=== PATIENT | male | born 1980 | race Caucasian/White ===

== ENCOUNTER 2023-04-29 21:55 | Emergency (ER) | payer OTHER ==
[~2023-04-29] VITALS: Ht 177.8 cm; Wt 79.4 kg
[2023-04-29] MEDS ORDERED: TDAP [DIPH/PERTUSSIS/TET] 0.5 ML VIAL IM ONE ×2 (23:00→23:10)
[2023-04-29] MEDS ORDERED: AMOX-430 PO ×2 (23:39→23:42)
[2023-04-29] MEDS ORDERED: IBUP-1955 PO (23:42)
[2023-04-29 23:56] VITALS: BP 128/84; TEMP 98; O2SAT 99
== END 2023-04-29 23:56 | disposition home or self-care (01) ==
LOC: ER 22:05
DX: S60.512A Abrasion of left hand, initial encounter (principal); S60.511A Abrasion of right hand, initial encounter; I10 Essential (primary) hypertension; Z60.2 Problems related to living alone; W55.03XA Scratched by cat, initial encounter; Y93.89 Activity, other specified; Y92.89 Other specified places as the place of occurrence of the external cause; Y99.8 Other external cause status
CPT/HCPCS: 73130-TC; 90715